=== PATIENT | male | born 1965 | race African-American/Black ===

== ENCOUNTER 2018-06-07 10:59 | Inpatient (IN) | payer OTHER ==
[2018-06-07 11:31] VITALS: BMI 23.7
--- NOTE | 2018-06-07 14:05 | HP ---
CIWA Score Nausea/Vomitin-No Nausea/No Vomiting Muscle Tremors: 3 Anxiety: 4-Mod. Anxious/Guarded Agitation: 4-Moderately Restless Paroxysmal Sweats: 3 Orientation: 0-Oriented Tacttile Disturbances: 0-None Auditory Disturbances: 0-None Visual Disturbances: 0-None Headache: 0-None Present CIWA-Ar Total Score: 14 - Admission Criteria OASAS Guidelines: Admission for Medically Managed Detox: Requires at least one of the followin. CIWA greater than 12 2. Seizures within the past 24 hours 3. Delirium tremens within the past 24 hours 4. Hallucinations within the past 24 hours 5. Acute intervention needed for co occurring medical disorder 6. Acute intervention needed for co occurring psychiatric disorder 7. Severe withdrawal that cannot be handled at a lower level of care (continued vomiting, continued diarrhea, abnormal vital signs) requiring intravenous medication and/or fluids 8. Admission ROS [facility] - [facility] Chief Complaint: I am here for detox and go to rehab. Allergies/Adverse Reactions: Allergies Allergy/AdvReac Type Severity Reaction Status Date / Time No Known Allergies Allergy Verified 06/07/18 12:13 History of Present Illness: pt is a 53yr old male with a history of alcohol dependence seeking detox for treatment. Exam Limitations: No Limitations - Ebola screening Have you traveled outside of the country in the last 21 days: No Have you had contact with anyone from an Ebola affected area: No Have you been sick,other than usual withdrawal symptoms: No Do you have a fever: No - Review of Systems Constitutional: Chills, Night Sweats, Changes in sleep EENT: reports: No Symptoms Reported Respiratory: reports: No Symptoms reported Cardiac: reports: No Symptoms Reported GI: reports: Diarrhea, Poor Appetite, Poor Fluid Intake : reports: No Symptoms Reported Musculoskeletal: reports: No Symptoms Reported Integumentary: reports: Flushing, Sweating Neuro: reports: Headache, Seizure (last seizure 2012. not on any medication anymore.), Tingling, Tremors Endocrine: reports: Excessive Sweating, Flushing, Intolerance to Cold, Intolerance to Heat Hematology: reports: No Symptoms Reported Psychiatric: reports: Judgement Intact, Mood/Affect Appropiate, Orientated x3, Agitated, Anxious Other Systems: Reviewed and Negative Patient History - Patient Medical History Hx Anemia: No Hx Asthma: No Hx Chronic Obstructive Pulmonary Disease (COPD): No Hx Cancer: No Hx Cardiac Disorders: No Hx Congestive Heart Failure: No Hx Hypertension: No Hx Hypercholesterolemia: No Hx Pacemaker: No HX Cerebrovascular Accident: Yes (2012) Hx Seizures: Yes (last seizure was on 2012. not on any medication) Hx Dementia: No Hx Diabetes: No Hx Gastrointestinal Disorders: No Hx Liver Disease: No Hx Genitourinary Disorders: No Hx Sexually Transmitted Disorders: No Hx Renal Disease (ESRD): No Hx Thyroid Disease: No Hx Human Immunodeficiency Virus (HIV): No (negative) Hx Hepatitis C: No (negative) Hx Depression: No Hx Suicide Attempt: No (denies) Hx Bipolar Disorder: No Hx Schizophrenia: No - Patient Surgical History Past Surgical History: Yes Hx Neurologic Surgery: No Hx Cataract Extraction: No Hx Cardiac Surgery: No Hx Lung Surgery: No Hx Breast Surgery: No Hx Breast Biopsy: No Hx Abdominal Surgery: No Hx Appendectomy: No Hx Cholecystectomy: No Hx Genitourinary Surgery: No Hx Section: No Hx Orthopedic Surgery: Yes (fracture mandible, left in 1993) Anesthesia Reaction: No - PPD History Previous Implant?: Yes Documented Results: Negative w/o proof Date: 07/30/14 PPD to be Administered?: Yes - Reproductive History Patient is a Female of Child Bearing Age (11 -55 yrs old): No - Smoking Cessation Smoking history: Current every day smoker Have you smoked in the past 12 months: Yes Aproximately how many cigarettes per day: 10 Hx Chewing Tobacco Use: No Initiated information on smoking cessation: Yes 'Breaking Loose' booklet given: 06/07/18 - Substance & Tx. History Hx Alcohol Use: Yes Hx Substance Use: Yes Substance Use Type: Alcohol, Cocaine Hx Substance Use Treatment: Yes (last detox years ago cannot remember location) - Substances Abused Crack Route: Smoking Frequency: Daily Amount used: $300-400 Age of first use: 19 Date of Last Use: 06/06/18 Alcohol-cognac/dmitry Route: Oral Frequency: Daily Amount used: 2 pts. Age of first use: 18 Date of Last Use: 06/07/18 Family Disease History - Family Disease History Family History: Denies Admission Physical Exam BHS - Vital Signs Vital Signs: Vital Signs - 24 hr 06/07/18 11:28 Temperature 98.2 F Pulse Rate 88 Respiratory 19 Rate Blood Pressure 111/71 - Physical General Appearance: Yes: Appropriately Dressed, Tremorous, Irritable, Sweating, Anxious HEENTM: Yes: Hearing grossly Normal, Normal Voice Respiratory: Yes: Lungs Clear, Normal Breath Sounds, No Respiratory Distress Neck: Yes: No masses,lesions,Nodules Breast: Yes: Within Normal Limits Cardiology: Yes: Regular Rhythm, Regular Rate, S1, S2 Abdominal: Yes: Normal Bowel Sounds, Non Tender, Soft Genitourinary: Yes: Within Normal Limits Back: Yes: Normal Inspection Musculoskeletal: Yes: full range of Motion Extremities: Yes: Normal Capillary Refill, Normal Inspection, Non-Tender, Tremors Neurological: Yes: Fully Oriented, Alert, Normal Response Integumentary: Yes: Normal Color, Diaphoresis Lymphatic: Yes: Within Normal Limits - Diagnostic (1) CVA (cerebral infarction) Current Visit: Yes Status: Suspected Qualifiers: Cerebral infarction mechanism: unspecified mechanism Qualified Code(s): I63.9 - Cerebral infarction, unspecified (2) Cocaine dependence Current Visit: Yes Status: Chronic Qualifiers: Substance use status: uncomplicated Qualified Code(s): F14.20 - Cocaine dependence, uncomplicated (3) Drug-induced mood disorder Current Visit: No Status: Acute (4) Nicotine dependence Current Visit: Yes Status: Chronic Qualifiers: Nicotine product type: cigarettes Substance use status: uncomplicated Qualified Code(s): F17.210 - Nicotine dependence, cigarettes, uncomplicated (5) Alcohol dependence with uncomplicated withdrawal Current Visit: Yes Status: Chronic Cleared for Admission [facility] - Detox or Rehab [facility] Level of Care: Medically Managed Detox Regimen/Protocol: Librium [facility] Breath Alcohol Content Breath Alcohol Content: 0 Urine Drug Screen - Results Drug Screen Negative: No Urine Drug Screen Results: NICK-Cocaine Inpatient Rehab Admission - Rehab Decision to Admit Inpatient rehab admission?: No
[2018-06-07] MEDS ORDERED: chlordiazePOXIDE HCL 25 MG CAPSULE PO ONE (14:24)
[2018-06-07] MEDS ORDERED: LOPERAMIDE HCL 2 MG CAPSULE PO PRN (14:24)
[2018-06-07] MEDS ORDERED: ACETAMINOPHEN 325 MG TABLET (FP) PO PRN (14:24)
[2018-06-07] MEDS ORDERED: MAGNESIUM HYDROX 2400MG/30ML ORAL SUSPENSION 30 ML CUP PO PRN (14:24)
[2018-06-07] MEDS ORDERED: P-EPHED 60MG/TRIPROLIDI 2.5MG TABLET PO PRN (14:24)
[2018-06-07] MEDS ORDERED: NICOTINE POLACRILEX 4 MG GUM BUC PRN (14:24)
[2018-06-07] MEDS ORDERED: chlordiazePOXIDE HCL 25 MG CAPSULE PO PRN (14:24)
[2018-06-07] MEDS ORDERED: MAG HYDROX/AL HYDROX/SIMETH 30 ML UNIT-DOSE CUP PO PRN (14:24)
[2018-06-07] MEDS ORDERED: hydrOXYzine PAMOATE 50 MG CAPSULE (FP) PO PRN (14:24)
[2018-06-07] MEDS ORDERED: guaiFENesin/D-METHORPHAN HB 10 ML UNIT-DOSE CUPS PO PRN (14:24)
[2018-06-07] MEDS ORDERED: MAGNESIUM CITRATE 300 ML BOTTLE PO PRN (14:24)
[2018-06-07] MEDS ORDERED: MENTHOL/PHENOL 1 EACH UD MM PRN (14:24)
[2018-06-07] MEDS ORDERED: IBUPROFEN 400 MG TABLET (FP) PO PRN (14:24)
[2018-06-07] MEDS: chlordiazePOXIDE HCL 25 MG CAPSULE PO SCH ×2 (19:07→22:45)
[2018-06-07] MEDS: THIAMINE HCL 100 MG TABLET (FP) PO SCH (22:45)
[2018-06-08] MEDS: chlordiazePOXIDE HCL 25 MG CAPSULE PO SCH ×4 (06:06→22:23)
[2018-06-08] MEDS: PRENATAL VITAMINS W/ FOLIC ACID TABLET (FP) PO SCH (10:38)
[2018-06-08 10:52] LABS: HEMATOCRIT 37.7 % (35.4-49); HEMOGLOBIN 12.8 GM/dL (11.7-16.9); MCH 32.2 pg (25.7-33.7); MEAN CELL VOLUME 94.6 fl (80-96); PLATELET COUNT 369 K/MM3 (134-434); RBC 3.98 M/mm3 (4.00-5.60); RDW 14.9 % (11.9-15.9); WHITE BLOOD COUNT 6.7 K/mm3 (4.0-10.0)
[2018-06-08 11:19] LABS: ALBUMIN 3.3 g/dl (3.4-5.0); ALK PHOS 69 U/L (45-117); ANION GAP 7 MMOL/L (8-16); BILIRUBIN,TOTAL 0.3 mg/dL (0.2-1); BLOOD UREA NITROGEN 11 mg/dL (7-18); CALCIUM 8.8 mg/dL (8.5-10.1); CHLORIDE 108 mmol/L (98-107); CO2 27 mmol/L (21-32); CREATININE 0.9 mg/dL (0.55-1.3); GLUCOSE,RANDOM 69 mg/dL (74-106); POTASSIUM 4.7 mmol/L (3.5-5.1); SGOT/AST 17 U/L (15-37); SGPT/ALT 22 U/L (13-61); SODIUM 142 mmol/L (136-145); TOT PROT 7.2 g/dl (6.4-8.2)
--- NOTE | 2018-06-08 15:29 | PN ---
S CIWA - CIWA Score Nausea/Vomitin-Mild Nausea/No Vomiting Muscle Tremors: 3 Anxiety: 1-Mildly Anxious Agitation: 2 Paroxysmal Sweats: 1-Minimal Palms Moist Orientation: 0-Oriented Tacttile Disturbances: 0-None Auditory Disturbances: 0-None Visual Disturbances: 0-None Headache: 1-Very Mild CIWA-Ar Total Score: 9 S Progress Note (SOAP) Subjective: tremor sweating restlessness Objective: 06/08/18 15:30 Vital Signs Temperature 98.4 F 06/08/18 13:56 Pulse Rate 75 06/08/18 13:56 Respiratory Rate 18 06/08/18 13:56 Blood Pressure 116/65 06/08/18 13:56 O2 Sat by Pulse Oximetry (%) Laboratory Last Values WBC 6.7 K/mm3 (4.0-10.0) 06/08/18 06:00 RBC 3.98 M/mm3 (4.00-5.60) L 06/08/18 06:00 Hgb 12.8 GM/dL (11.7-16.9) 06/08/18 06:00 Hct 37.7 % (35.4-49) 06/08/18 06:00 MCV 94.6 fl (80-96) 06/08/18 06:00 MCH 32.2 pg (25.7-33.7) 06/08/18 06:00 MCHC 34.0 g/dl (32.0-35.9) 06/08/18 06:00 RDW 14.9 % (11.9-15.9) 06/08/18 06:00 Plt Count 369 K/MM3 (134-434) D 06/08/18 06:00 MPV 9.0 fl (7.5-11.1) 06/08/18 06:00 Sodium 142 mmol/L (136-145) 06/08/18 06:00 Potassium 4.7 mmol/L (3.5-5.1) 06/08/18 06:00 Chloride 108 mmol/L (98-107) H 06/08/18 06:00 Carbon Dioxide 27 mmol/L (21-32) 06/08/18 06:00 Anion Gap 7 MMOL/L (8-16) L 06/08/18 06:00 BUN 11 mg/dL (7-18) 06/08/18 06:00 Creatinine 0.9 mg/dL (0.55-1.3) 06/08/18 06:00 Creat Clearance w eGFR > 60 (>60) 06/08/18 06:00 Random Glucose 69 mg/dL (74-106) L 06/08/18 06:00 Calcium 8.8 mg/dL (8.5-10.1) 06/08/18 06:00 Total Bilirubin 0.3 mg/dL (0.2-1) 06/08/18 06:00 AST 17 U/L (15-37) 06/08/18 06:00 ALT 22 U/L (13-61) 06/08/18 06:00 Alkaline Phosphatase 69 U/L (45-117) 06/08/18 06:00 Total Protein 7.2 g/dl (6.4-8.2) 06/08/18 06:00 Albumin 3.3 g/dl (3.4-5.0) L 06/08/18 06:00 RPR Titer Nonreactive (NONREACTIVE) 06/08/18 06:00 HIV 1&2 Antibody Screen Negative 06/08/18 06:00 HIV P24 Antigen Negative 06/08/18 06:00 lab noted Assessment: 06/08/18 15:31 withdrawal sx Plan: continue detox
[2018-06-08] MEDS: THIAMINE HCL 100 MG TABLET (FP) PO SCH (22:23)
[2018-06-09] MEDS: chlordiazePOXIDE HCL 25 MG CAPSULE PO SCH ×2 (06:39→10:35)
[2018-06-09] MEDS: PRENATAL VITAMINS W/ FOLIC ACID TABLET (FP) PO SCH (10:35)
--- NOTE | 2018-06-09 17:54 | PN ---
S CIWA - CIWA Score Nausea/Vomitin-No Nausea/No Vomiting Muscle Tremors: 2 Anxiety: 3 Agitation: 0-Normal Activity Paroxysmal Sweats: 3 Orientation: 0-Oriented Tacttile Disturbances: 1-Very Mild Itch/Numbness Auditory Disturbances: 0-None Visual Disturbances: 1-Very Mild Sensitivity Headache: 0-None Present CIWA-Ar Total Score: 10 BHS Progress Note (SOAP) Subjective: Tremors, Sweating, Anxious. Objective: PATIENT A & O X 3, OBSERVED AMBULATING ON UNIT. IN NO ACUTE DISTRESS. 06/09/18 17:52 Vital Signs Temperature 98.2 F 06/09/18 17:51 Pulse Rate 77 06/09/18 17:51 Respiratory Rate 18 06/09/18 17:51 Blood Pressure 119/68 06/09/18 17:51 O2 Sat by Pulse Oximetry (%) Laboratory Tests 06/08/18 06/08/18 06/08/18 06:00 06:00 06:00 WBC 6.7 RBC 3.98 L Hgb 12.8 Hct 37.7 MCV 94.6 MCH 32.2 MCHC 34.0 RDW 14.9 Plt Count 369 D MPV 9.0 Sodium 142 Potassium 4.7 Chloride 108 H Carbon Dioxide 27 Anion Gap 7 L BUN 11 Creatinine 0.9 Creat Clearance w eGFR > 60 Random Glucose 69 L Calcium 8.8 Total Bilirubin 0.3 AST 17 ALT 22 Alkaline Phosphatase 69 Total Protein 7.2 Albumin 3.3 L RPR Titer HIV 1&2 Antibody Screen Negative HIV P24 Antigen Negative 06/08/18 06:00 WBC RBC Hgb Hct MCV MCH MCHC RDW Plt Count MPV Sodium Potassium Chloride Carbon Dioxide Anion Gap BUN Creatinine Creat Clearance w eGFR Random Glucose Calcium Total Bilirubin AST ALT Alkaline Phosphatase Total Protein Albumin RPR Titer Nonreactive HIV 1&2 Antibody Screen HIV P24 Antigen LABS NOTED. Assessment: 06/09/18 17:53 WITHDRAWAL SYMPTOMS. Plan: CONTINUE DETOX.
[2018-06-09] MEDS: chlordiazePOXIDE 5 MG CAPSULE PO SCH ×2 (18:39→22:12)
[2018-06-09] MEDS: MELATONIN 5 MG TABLETS PO PRN (21:51)
[2018-06-09] MEDS: THIAMINE HCL 100 MG TABLET (FP) PO SCH (21:51)
[2018-06-10] MEDS: chlordiazePOXIDE 5 MG CAPSULE PO SCH ×2 (06:00→11:49)
[2018-06-10] MEDS: PRENATAL VITAMINS W/ FOLIC ACID TABLET (FP) PO SCH (11:49)
--- NOTE | 2018-06-10 15:31 | PN ---
BHS Progress Note (SOAP) Subjective: Fatigue. Objective: PATIENT A & O X 3. IN NO ACUTE DISTRESS. 06/10/18 15:30 Vital Signs Temperature 97.6 F 06/10/18 14:09 Pulse Rate 80 06/10/18 14:09 Respiratory Rate 20 06/10/18 14:09 Blood Pressure 132/79 06/10/18 14:09 O2 Sat by Pulse Oximetry (%) Laboratory Tests 06/08/18 06/08/18 06/08/18 06:00 06:00 06:00 WBC 6.7 RBC 3.98 L Hgb 12.8 Hct 37.7 MCV 94.6 MCH 32.2 MCHC 34.0 RDW 14.9 Plt Count 369 D MPV 9.0 Sodium 142 Potassium 4.7 Chloride 108 H Carbon Dioxide 27 Anion Gap 7 L BUN 11 Creatinine 0.9 Creat Clearance w eGFR > 60 Random Glucose 69 L Calcium 8.8 Total Bilirubin 0.3 AST 17 ALT 22 Alkaline Phosphatase 69 Total Protein 7.2 Albumin 3.3 L RPR Titer HIV 1&2 Antibody Screen Negative HIV P24 Antigen Negative 06/08/18 06:00 WBC RBC Hgb Hct MCV MCH MCHC RDW Plt Count MPV Sodium Potassium Chloride Carbon Dioxide Anion Gap BUN Creatinine Creat Clearance w eGFR Random Glucose Calcium Total Bilirubin AST ALT Alkaline Phosphatase Total Protein Albumin RPR Titer Nonreactive HIV 1&2 Antibody Screen HIV P24 Antigen LABS NOTED. Assessment: 06/10/18 15:30 WITHDRAWAL SYMPTOMS. Plan: CONTINUE DETOX. PATIENT SCHEDULED FOR D/C TOMORROW.
[2018-06-10] MEDS: chlordiazePOXIDE HCL 10 MG CAPSULE PO SCH ×2 (17:54→22:25)
[2018-06-10] MEDS: THIAMINE HCL 100 MG TABLET (FP) PO SCH (22:24)
[2018-06-10] MEDS: MELATONIN 5 MG TABLETS PO PRN (22:25)
[2018-06-11] MEDS: chlordiazePOXIDE HCL 10 MG CAPSULE PO SCH ×2 (06:28→11:53)
[2018-06-11 09:34] VITALS: BP 121/73; PULSE 77; TEMP 98.3
--- NOTE | 2018-06-11 10:43 | DS ---
[facility] Detox Discharge Summary Admission Date: 06/07/18 Discharge Date: 06/11/18 - History Present History: Alcohol Dependence Additional Comments: 53 years old male admitted on 06/07/18 for alcohol withdrawal stabilization completed alcohol detox regimen aftercare [facility] Physical Exam Results Vital Signs: Vital Signs Temperature 98.3 F 06/11/18 09:34 Pulse Rate 77 06/11/18 09:34 Respiratory Rate 18 06/11/18 09:34 Blood Pressure 121/73 06/11/18 09:34 O2 Sat by Pulse Oximetry (%) Pertinent Admission Physical Exam Findings: alcohol withdrawal sx Laboratory Last Values WBC 6.7 K/mm3 (4.0-10.0) 06/08/18 06:00 RBC 3.98 M/mm3 (4.00-5.60) L 06/08/18 06:00 Hgb 12.8 GM/dL (11.7-16.9) 06/08/18 06:00 Hct 37.7 % (35.4-49) 06/08/18 06:00 MCV 94.6 fl (80-96) 06/08/18 06:00 MCH 32.2 pg (25.7-33.7) 06/08/18 06:00 MCHC 34.0 g/dl (32.0-35.9) 06/08/18 06:00 RDW 14.9 % (11.9-15.9) 06/08/18 06:00 Plt Count 369 K/MM3 (134-434) D 06/08/18 06:00 MPV 9.0 fl (7.5-11.1) 06/08/18 06:00 Sodium 142 mmol/L (136-145) 06/08/18 06:00 Potassium 4.7 mmol/L (3.5-5.1) 06/08/18 06:00 Chloride 108 mmol/L (98-107) H 06/08/18 06:00 Carbon Dioxide 27 mmol/L (21-32) 06/08/18 06:00 Anion Gap 7 MMOL/L (8-16) L 06/08/18 06:00 BUN 11 mg/dL (7-18) 06/08/18 06:00 Creatinine 0.9 mg/dL (0.55-1.3) 06/08/18 06:00 Creat Clearance w eGFR > 60 (>60) 06/08/18 06:00 Random Glucose 69 mg/dL (74-106) L 06/08/18 06:00 Calcium 8.8 mg/dL (8.5-10.1) 06/08/18 06:00 Total Bilirubin 0.3 mg/dL (0.2-1) 06/08/18 06:00 AST 17 U/L (15-37) 06/08/18 06:00 ALT 22 U/L (13-61) 06/08/18 06:00 Alkaline Phosphatase 69 U/L (45-117) 06/08/18 06:00 Total Protein 7.2 g/dl (6.4-8.2) 06/08/18 06:00 Albumin 3.3 g/dl (3.4-5.0) L 06/08/18 06:00 RPR Titer Nonreactive (NONREACTIVE) 06/08/18 06:00 HIV 1&2 Antibody Screen Negative 06/08/18 06:00 HIV P24 Antigen Negative 06/08/18 06:00 lab noted - Treatment Hospital Course: Detox Protocol Followed, Detoxed Safely, Responded well, Discharged Condition Good, Rehab Referral Accepted Patient has Accepted a Rehab Referral to: [facility] - Medication Discharge Medications: Ambulatory Orders NK [No Known Home Medication] 06/07/18 - Diagnosis (1) Alcohol dependence with uncomplicated withdrawal Current Visit: Yes Status: Acute (2) Nicotine dependence Current Visit: Yes Status: Acute Qualifiers: Nicotine product type: cigarettes Substance use status: in withdrawal Qualified Code(s): F17.213 - Nicotine dependence, cigarettes, with withdrawal (3) Drug-induced mood disorder Current Visit: Yes Status: Suspected - AMA Did Patient Leave Against Medical Advice: No
[2018-06-11] MEDS: PRENATAL VITAMINS W/ FOLIC ACID TABLET (FP) PO SCH (11:53)
== END 2018-06-11 12:07 | disposition other institution (70) | DRG 774 ==
LOC: YASAS 10:59 → Y3N 15:36
PROVIDERS: ADMIT Surgery; ATTEND Surgery
PROC: HZ2ZZZZ Detoxification Services for Substance Abuse Treatment (ICD-10-PCS; principal; 2018-06-07)
DX: F10.230 Alcohol dependence with withdrawal, uncomplicated (principal); F14.20 Cocaine dependence, uncomplicated; F17.213 Nicotine dependence, cigarettes, with withdrawal; F19.24 Other psychoactive substance dependence with psychoactive substance-induced mood disorder; Z86.73 Personal history of transient ischemic attack (TIA), and cerebral infarction without residual deficits; Z86.69 Personal history of other diseases of the nervous system and sense organs
CPT/HCPCS: 36415; 80053; 85027; 86593; 87389

== ENCOUNTER 2018-06-11 13:04 | Inpatient (IN) | payer OTHER ==
--- NOTE | 2018-06-11 11:17 | HP ---
[facility] Rehab Assess/Revision - Admission History Admitted to Rehab from: [facility] Date of Admission to Rehab: 06/11/18 - Findings Detox History & Physical reviewed: Yes Concur with findings: Yes Comments/Additional Findings: transferred from detox to rehab admission as per protocol Inpatient Rehab Admission - Rehab Decision to Admit Inpatient rehab admission?: Yes - Initial Determination Are CD services needed?: Yes Free of communicable disease: Yes Not in need of hospitalization: Yes - Rehab Admission Criteria Previous failed treatment: Yes Poor recovery environment: Yes Comorbidities: Yes Lacks judgement: No Patient is meeting Inpatient Rehab admission criteria:: Yes
[~2018-06-11 13:04] MED LIST: ACETAMINOPHEN 325 MG TABLET (FP) PO PRN; IBUPROFEN 400 MG TABLET (FP) PO PRN; LOPERAMIDE HCL 2 MG CAPSULE PO PRN; MAG HYDROX/AL HYDROX/SIMETH 30 ML UNIT-DOSE CUP PO PRN; MAGNESIUM CITRATE 300 ML BOTTLE PO PRN; MAGNESIUM HYDROX 2400MG/30ML ORAL SUSPENSION 30 ML CUP PO PRN; MENTHOL/PHENOL 1 EACH UD MM PRN; NICOTINE 14 MG/24 HOURS TOPICAL PATCH TD PRN; NICOTINE POLACRILEX 2 MG GUM BUC PRN; P-EPHED 60MG/TRIPROLIDI 2.5MG TABLET PO PRN; guaiFENesin/D-METHORPHAN HB 10 ML UNIT-DOSE CUPS PO PRN
[2018-06-11] MEDS: THIAMINE HCL 100 MG TABLET (FP) PO SCH (22:20)
[2018-06-11] MEDS: MELATONIN 5 MG TABLETS PO PRN (22:20)
[2018-06-12] MEDS: PRENATAL VITAMINS W/ FOLIC ACID TABLET (FP) PO SCH (10:33)
[2018-06-12] MEDS: MELATONIN 5 MG TABLETS PO PRN (21:52)
[2018-06-12] MEDS: THIAMINE HCL 100 MG TABLET (FP) PO SCH (21:52)
[2018-06-13] MEDS: PRENATAL VITAMINS W/ FOLIC ACID TABLET (FP) PO SCH (10:36)
--- NOTE | 2018-06-13 14:50 | PN ---
S Progress Note (SOAP) Subjective: Client requesting stitches removed from face. States that the laceration was a result of a random slashing. Has had all the other stitches removed, date unknown; the remaining stitches since 02/10/2018. States they did not bother him when he was using crack and that is the reason he did not have them removed at the appropriate time. . Reports that the last time suture removal was attempted , it hurt too much and he requested that the practitioner stop. Objective: 06/13/18 14:46 laceration on left side of face from above his eye to chin. Well healed with 4 remaining stitches in the center of the laceration, proximal to his left eye. 06/13/18 14:52 Assessment: Embedded stitches, left side of face, well healed laceration approximately 6 inches in length 06/13/18 14:48 Plan: Removed 2 stitches. From to top-first stitch and at the bottom-the 4th stitch. When attempting to remove 3rd and 4th center stitches, patient refused. Two remaining stitches in laceration.
[2018-06-13] MEDS: MELATONIN 5 MG TABLETS PO PRN (21:35)
[2018-06-13] MEDS: THIAMINE HCL 100 MG TABLET (FP) PO SCH (21:35)
[2018-06-14] MEDS: PRENATAL VITAMINS W/ FOLIC ACID TABLET (FP) PO SCH (10:27)
[2018-06-14] MEDS: MELATONIN 5 MG TABLETS PO PRN (21:31)
[2018-06-14] MEDS: THIAMINE HCL 100 MG TABLET (FP) PO SCH (21:31)
[2018-06-15] MEDS: PRENATAL VITAMINS W/ FOLIC ACID TABLET (FP) PO SCH (10:33)
[2018-06-15] MEDS: THIAMINE HCL 100 MG TABLET (FP) PO SCH (21:37)
[2018-06-15] MEDS: MELATONIN 5 MG TABLETS PO PRN (21:37)
[2018-06-16] MEDS: PRENATAL VITAMINS W/ FOLIC ACID TABLET (FP) PO SCH (10:08)
[2018-06-16] MEDS: THIAMINE HCL 100 MG TABLET (FP) PO SCH (23:40)
[2018-06-16] MEDS: MELATONIN 5 MG TABLETS PO PRN (23:40)
[2018-06-17] MEDS: PRENATAL VITAMINS W/ FOLIC ACID TABLET (FP) PO SCH (10:13)
[2018-06-17] MEDS: THIAMINE HCL 100 MG TABLET (FP) PO SCH (22:00)
[2018-06-18] MEDS: PRENATAL VITAMINS W/ FOLIC ACID TABLET (FP) PO SCH (10:15)
[2018-06-18] MEDS: THIAMINE HCL 100 MG TABLET (FP) PO SCH (22:08)
[2018-06-19] MEDS: PRENATAL VITAMINS W/ FOLIC ACID TABLET (FP) PO SCH (10:14)
[2018-06-19] MEDS: THIAMINE HCL 100 MG TABLET (FP) PO SCH (22:11)
[2018-06-20 06:58] VITALS: BP 121/74; PULSE 65; TEMP 97.6
--- NOTE | 2018-06-20 09:41 | PN ---
S Progress Note Note: client to be discharged today. Going to [facility] for aftercare; primary care provided by Dr. Young, [address] No home meds renewal needed.
== END 2018-06-20 09:35 | disposition home or self-care (01) | DRG 772 ==
LOC: YASAS 13:04 → Y3W 13:07
PROVIDERS: ADMIT Neuromusculoskeletal Medicine & OMM; ATTEND Neuromusculoskeletal Medicine & OMM
PROC: HZ42ZZZ Group Counseling for Substance Abuse Treatment, Cognitive-Behavioral (ICD-10-PCS; principal; 2018-06-11)
DX: F10.230 Alcohol dependence with withdrawal, uncomplicated (principal); F14.20 Cocaine dependence, uncomplicated; F17.210 Nicotine dependence, cigarettes, uncomplicated; F19.24 Other psychoactive substance dependence with psychoactive substance-induced mood disorder; Z86.73 Personal history of transient ischemic attack (TIA), and cerebral infarction without residual deficits; Z86.69 Personal history of other diseases of the nervous system and sense organs

== ENCOUNTER 2022-07-05 15:56 | Inpatient (IN) | payer OTHER ==
[2022-07-05 16:31] VITALS: BMI 22.4
[2022-07-05] MEDS ORDERED: guaiFENesin 600 MG TABLET.ER (FP) PO PRN (19:12)
[2022-07-05] MEDS ORDERED: IBUPROFEN 400 MG TABLET (FP) PO PRN (19:12)
[2022-07-05] MEDS ORDERED: P-EPHED 60MG/TRIPROLIDI 2.5MG TABLET PO PRN (19:12)
[2022-07-05] MEDS ORDERED: ONDANSETRON *ODT* 4 MG TABLET SL PRN (19:12)
[2022-07-05] MEDS ORDERED: ACETAMINOPHEN 325 MG TABLET (FP) PO PRN (19:12)
[2022-07-05] MEDS ORDERED: DICYCLOMINE HCL 10 MG CAPSULE PO PRN (19:12)
[2022-07-05] MEDS ORDERED: BENZONATATE 200 MG CAPSULE PO PRN (19:12)
[2022-07-05] MEDS ORDERED: IBUPROFEN 600 MG TABLET (FP) PO PRN (19:12)
[2022-07-05] MEDS ORDERED: LOPERAMIDE HCL 2 MG CAPSULE PO PRN (19:12)
[2022-07-05] MEDS ORDERED: MAGNESIUM HYDROX 2400MG/30ML ORAL SUSPENSION 30 ML CUP PO PRN (19:12)
[2022-07-05] MEDS ORDERED: BISMUTH SUBSALICYLATE 524 MG/30 ML PO PRN (19:12)
[2022-07-05] MEDS ORDERED: POLYETHYLENE GLYCOL (HEALTHYLAX) 3350 17 GM PACKET PO PRN (19:12)
[2022-07-05] MEDS ORDERED: BENZOCAINE/MENTHOL (CHLORASEPTIC ) LOZENGE MM PRN (19:12)
[2022-07-05] MEDS ORDERED: MAG HYDROX/AL HYDROX/SIMETH 30 ML UNIT-DOSE CUP PO PRN (19:12)
[2022-07-05] MEDS: THIAMINE HCL 100 MG TABLET (FP) PO SCH (23:37)
[2022-07-06] MEDS ORDERED: chlordiazePOXIDE HCL 25 MG CAPSULE PO PRN (09:18)
[2022-07-06] MEDS: hydrOXYzine PAMOATE 25 MG CAPSULE (FP) PO PRN (10:29)
[2022-07-06] MEDS: PRENATAL VITAMINS W/ FOLIC ACID TABLET (FP) PO SCH (10:29)
[2022-07-06] MEDS: chlordiazePOXIDE HCL 25 MG CAPSULE PO SCH ×3 (10:30→22:34)
[2022-07-06 11:33] LABS: HEMATOCRIT 41.5 % (35.4-49); HEMOGLOBIN 14.1 GM/dL (11.7-16.9); MCH 31.6 pg (25.7-33.7); MCHC 33.9 g/dl (32.0-35.9); MEAN CELL VOLUME 93.4 fl (80-96); MEAN PLT VOLUME 8.4 fl (7.5-11.1); PLATELET COUNT 379 10^3/uL (134-434); RBC 4.44 M/mm3 (4.00-5.60); RDW 14.3 % (11.9-15.9); WHITE BLOOD COUNT 6.7 K/mm3 (4.0-10.0)
[2022-07-06 11:38] LABS: CALCIUM 8.6 mg/dL (8.5-10.1)
[2022-07-06 11:39] LABS: ALBUMIN 3.4 g/dl (3.4-5.0)
[2022-07-06 11:42] LABS: CREATININE 0.8 mg/dL (0.55-1.3)
[2022-07-06 11:43] LABS: BILIRUBIN,TOTAL 0.3 mg/dL (0.2-1); TOT PROT 7.6 g/dl (6.4-8.2)
[2022-07-06] MEDS: THIAMINE HCL 100 MG TABLET (FP) PO SCH (22:34)
[2022-07-06] MEDS: MELATONIN 5 MG TABLETS PO PRN (22:34)
[2022-07-07] MEDS: chlordiazePOXIDE HCL 25 MG CAPSULE PO SCH ×4 (05:57→23:03)
[2022-07-07] MEDS: PRENATAL VITAMINS W/ FOLIC ACID TABLET (FP) PO SCH (10:37)
[2022-07-07] MEDS: MELATONIN 5 MG TABLETS PO PRN (22:16)
[2022-07-07] MEDS: THIAMINE HCL 100 MG TABLET (FP) PO SCH (22:16)
[2022-07-08] MEDS: hydrOXYzine PAMOATE 25 MG CAPSULE (FP) PO PRN (02:19)
[2022-07-08] MEDS: chlordiazePOXIDE HCL 25 MG CAPSULE PO SCH ×4 (05:46→22:00)
[2022-07-08] MEDS: PRENATAL VITAMINS W/ FOLIC ACID TABLET (FP) PO SCH (10:46)
[2022-07-08] MEDS: THIAMINE HCL 100 MG TABLET (FP) PO SCH (21:57)
[2022-07-08] MEDS: MELATONIN 5 MG TABLETS PO PRN (21:58)
[2022-07-09] MEDS ORDERED: chlordiazePOXIDE HCL 10 MG CAPSULE PO PRN
[2022-07-09] MEDS: chlordiazePOXIDE HCL 10 MG CAPSULE PO SCH ×2 (05:31→10:49)
[2022-07-09 06:39] VITALS: RESP 18
[2022-07-09 10:12] VITALS: BP 110/65; PULSE 95; TEMP 98.1
[2022-07-09] MEDS: PRENATAL VITAMINS W/ FOLIC ACID TABLET (FP) PO SCH (10:49)
[2022-07-10] MEDS ORDERED: chlordiazePOXIDE HCL 10 MG CAPSULE PO SCH (05:00)
[2022-07-11] MEDS ORDERED: chlordiazePOXIDE HCL 10 MG CAPSULE PO ONE (05:00)
== END 2022-07-09 09:25 | disposition other institution (70) | DRG 774 ==
LOC: YASAS 15:56 → Y6N 19:55 → UNDOADMIN 19:55 → Y6N 19:59
PROVIDERS: ADMIT Allergy & Immunology; ATTEND Allergy & Immunology
PROC: HZ2ZZZZ Detoxification Services for Substance Abuse Treatment (ICD-10-PCS; principal; 2022-07-05)
DX: F10.230 Alcohol dependence with withdrawal, uncomplicated (principal); F14.20 Cocaine dependence, uncomplicated; F17.210 Nicotine dependence, cigarettes, uncomplicated; Z86.73 Personal history of transient ischemic attack (TIA), and cerebral infarction without residual deficits; Z28.310 Unvaccinated for COVID-19; Z28.9 Immunization not carried out for unspecified reason
CPT/HCPCS: 36415; 80053; 85027; 86780; C9803-CS; U0003; U0005